=== PATIENT | female | born 1960 | race Caucasian/White ===

== ENCOUNTER 2021-11-20 23:57 | Emergency (ER) | payer OTHER ==
[2021-11-21 00:36] VITALS: BP 134/69; PULSE 92; RESP 17; TEMP 98.4; BMI 24.6
== END 2021-11-21 02:10 | disposition left against medical advice (07) ==
LOC: JER 23:57
DX: S09.90XA Unspecified injury of head, initial encounter (principal); W01.0XXA Fall on same level from slipping, tripping and stumbling without subsequent striking against object, initial encounter
CPT/HCPCS: 70450-TC; 70486-TC; 72125-TC; 99285-25